=== PATIENT | female | born 1995 | race Caucasian/White ===

== ENCOUNTER 2016-11-06 21:23 | Emergency (ER) | payer BC ==
[2016-11-06 21:28] VITALS: PULSE 80; TEMP 97.7
--- NOTE | 2016-11-06 21:55 | EDPHY ---
H & P Stated Complaint: FALL SNOWBOARDING, HIT FRONT OF HEAD,STIFF NECK/DIZZY/GARZA Time Seen by Provider: 11/06/16 21:34 HPI/ROS: CHIEF COMPLAINT: Head injury HISTORY OF PRESENT ILLNESS: 21-year-old female presents to the emergency department complaining of headache, nausea, feeling foggy after a head strike while snowboarding 5 hours prior to arrival. Patient reports she caught an edge falling forward and striking her forehead on the snow. She was wearing a helmet, no loss of consciousness, remembers the entire accident. Patient denies neck pain. She reports a mild 5/10 headache, she reports mild nausea, and feels foggy and difficulty concentrating. Patient denies forceful vomiting no confusion, no altered gait. Sister at bedside reports she is acting appropriate. No previous concussion. Patient is not on anticoagulants. REVIEW OF SYSTEMS: A comprehensive 10 point review of systems is otherwise negative aside from elements mentioned in the history of present illness. Source: Patient Exam Limitations: No limitations - Personal History LMP (Females 10-55): Now Current Tetanus/Diphtheria Vaccine: Yes - Medical/Surgical History Hx Asthma: No Hx Chronic Respiratory Disease: No Hx Diabetes: No Hx Cardiac Disease: No Hx Renal Disease: No Hx Cirrhosis: No Hx Alcoholism: No Hx HIV/AIDS: No Hx Splenectomy or Spleen Trauma: No Other PMH: DENIES - Social History Smoking Status: Never smoked - Physical Exam Exam: Physical Exam Gen: Alert and Oriented, NAD HEENT: PERRL, moist mucous membranes NECK: No C-spine tenderness, no neurovascular compromise with range of motion CV: regular rate and regular rhythm PULM: CTAB, no wheezes ABDOMEN: soft, non tender to palpation, BS present NEURO: Neurologically grossly intact, normal cerebellar exam, normal gait, negative Romberg's EXTREMITIES: normal appearing SKIN: no rash or break in skin on exposed skin PSYCH: answers questions appropriately. Constitutional: Initial Vital Signs Temperature (C) 36.5 C 11/06/16 21:26 Heart Rate 80 11/06/16 21:26 Respiratory Rate 18 11/06/16 21:26 Blood Pressure 108/75 11/06/16 21:26 O2 Sat (%) 95 11/06/16 21:26 O2 Delivery Mode Room Air Allergies/Adverse Reactions: No Known Allergies Allergy (Unverified 11/06/16 21:25) Home Medications: Medication Instructions Recorded Ortho Tri-Cyclen 28 Tablet 11/06/16 Medical Decision Making ED Course/Re-evaluation: This patient presents after a minor head injury with no headache, amnesia or LOC. Neurologic exam normal. No indication for neuro imaging. CHI precautions given. Differential Diagnosis: The differential diagnosis for the patient's head injury included but was not limited to concussion, skull fracture, intra-parenchymal contusion, subarachnoid , subdural and epidural hematoma. Departure - Departure Disposition: Home, Routine, Self-Care Clinical Impression: Minor head injury without loss of consciousness Qualifiers: Encounter type: initial encounter Qualified Code(s): S09.90XA - Unspecified injury of head, initial encounter Concussion Qualifiers: Encounter type: initial encounter Loss of consciousness presence/duration: without LOC Qualified Code(s): S06.0X0A - Concussion without loss of consciousness, initial encounter Condition: Good Instructions: Concussion (ED), Head Injury (ED) Additional Instructions: Return to the emergency department for any forceful vomiting, confusion, altered gait, any other questions or concerns. You can take 650 mg of Tylenol every 8 hours for your headache you can also take 600 mg of ibuprofen every 8 hours with food for your headache for 3-5 days, you can alternate these so you' re taking 1 or the other every 4 hours. Follow up with a concussion specialist on arrival home early next week for any continued symptoms of concussion. Do not do any activities where you can risk hitting her head again until you have no symptoms and have followed up with the concussion specialist. Referrals: Angela Burger MD [Medical Doctor] - As per Instructions (Concussion specialist )
[2016-11-06] MEDS ORDERED: ACETAMINOPHEN 325 MG TAB PO ONE (21:56)
[2016-11-06 22:09] VITALS: BP 107/73; RESP 16; O2SAT 97
== END 2016-11-06 22:08 | disposition home or self-care (01) ==
DX: S06.0X0A Concussion without loss of consciousness, initial encounter (principal); V00.311A Fall from snowboard, initial encounter; Y92.89 Other specified places as the place of occurrence of the external cause; Y99.8 Other external cause status; Y93.23 Activity, snow (alpine) (downhill) skiing, snowboarding, sledding, tobogganing and snow tubing